=== PATIENT | male | born 1960 | race Native Hawaiian/Other Pacific Islander ===

== ENCOUNTER → 2016-08-10 | Outpatient (CLI) | payer OTHER | LOC: FIMAGING 06:42 | PROVIDERS: ATTEND Orthopaedic Surgery Sports Medicine | DX: S83.241A Other tear of medial meniscus, current injury, right knee, initial encounter (principal); M94.8X6 Other specified disorders of cartilage, lower leg; M22.41 Chondromalacia patellae, right knee ==